=== PATIENT | male | born 1975 | race American Indian/Alaskan Native ===

== ENCOUNTER 2018-02-11 00:14 | Emergency (ER) | payer SELFPAY ==
--- NOTE | 2018-02-11 09:40 | Emergency Department Report ---
ED General Adult HPI - General Chief complaint: Dental/Oral Stated complaint: TOOTH ACHE Time Seen by Provider: 02/11/18 09:35 Source: patient Mode of arrival: Ambulatory Limitations: No Limitations - History of Present Illness Initial comments: Patient is a 42-year-old male who presents with right upper tooth pain that has been going on for the last couple months. He states that his tooth pain is a 3 out of 10. Vomiting makes the pain worse or makes it better. He states that he has not been able go see a dentist however that he needs some antibiotics for his tooth. Patient states that he has no medical problems and he plans to go to the dentist next week. - Related Data Previous Rx's Medication Instructions Recorded Last Taken Type Chlorhexidine Mouthwash [Peridex] 15 ml MM BID #1 bottle 02/11/18 Unknown Rx Penicillin V Potassium 500 mg PO Q6H #30 tablet 02/11/18 Unknown Rx Allergies Allergy/AdvReac Type Severity Reaction Status Date / Time No Known Allergies Allergy Unverified 02/11/18 01:00 ED Review of Systems ROS: Stated complaint: TOOTH ACHE Other details as noted in HPI Constitutional: denies: chills, fever Eyes: denies: eye pain, eye discharge, vision change ENT: other (tooth pain ). denies: ear pain, throat pain Respiratory: denies: cough, shortness of breath, wheezing Cardiovascular: denies: chest pain, palpitations Endocrine: no symptoms reported Gastrointestinal: denies: abdominal pain, nausea, diarrhea Genitourinary: denies: urgency, dysuria Musculoskeletal: denies: back pain, joint swelling, arthralgia Skin: denies: rash, lesions Neurological: denies: headache, weakness, paresthesias Psychiatric: denies: anxiety, depression Hematological/Lymphatic: denies: easy bleeding, easy bruising ED Past Medical Hx - Past Medical History Previous Medical History?: No - Surgical History Past Surgical History?: No - Social History Smoking Status: Current Every Day Smoker Substance Use Type: None - Medications Home Medications: Home Medications Medication Instructions Recorded Confirmed Last Taken Type Chlorhexidine Mouthwash [Peridex] 15 ml MM BID #1 bottle 02/11/18 Unknown Rx Penicillin V Potassium 500 mg PO Q6H #30 tablet 02/11/18 Unknown Rx ED Physical Exam - General Limitations: No Limitations General appearance: alert, in no apparent distress - Head Head exam: Present: atraumatic, normocephalic - Eye Eye exam: Present: normal appearance - ENT ENT exam: Present: mucous membranes moist, other (poor dentition ) - Neck Neck exam: Present: normal inspection - Respiratory Respiratory exam: Present: normal lung sounds bilaterally. Absent: respiratory distress - Cardiovascular Cardiovascular Exam: Present: regular rate, normal rhythm. Absent: systolic murmur, diastolic murmur, rubs, gallop - GI/Abdominal GI/Abdominal exam: Present: soft, normal bowel sounds - Rectal Rectal exam: Present: deferred - Extremities Exam Extremities exam: Present: normal inspection - Back Exam Back exam: Present: normal inspection - Neurological Exam Neurological exam: Present: alert, oriented X3 - Psychiatric Psychiatric exam: Present: normal affect, normal mood - Skin Skin exam: Present: warm, dry, intact, normal color. Absent: rash ED Course Vital Signs 02/11/18 02/11/18 00:42 09:02 Temperature 98.0 F 97.7 F Pulse Rate 78 61 Respiratory 14 16 Rate Blood Pressure 115/69 Blood Pressure 142/99 [Right] O2 Sat by Pulse 98 98 Oximetry ED Medical Decision Making - Medical Decision Making Cdx: Dental cavities ddx: Pulpitis, Periapical absess I will send patient home with oral antibiotics and oral mouthwash. Additional verbal discharge instructions were given. Patient agrees with plan. Critical care attestation.: If time is entered above; I have spent that time in minutes in the direct care of this critically ill patient, excluding procedure time. ED Disposition Clinical Impression: Infected dental carries, Tooth pain Disposition: [id number] TO HOME OR SELFCARE Is pt being admited?: No Does the pt Need Aspirin: No Condition: Stable Additional Instructions: 7. [facility] Location [facility] Location [place] miles away from [address] [address] [facility]: [place] miles from [place] [facility]. Bring Proof of income and current id and proof of independents. Our professional staff provides a variety of dental services including cleanings, fluoride treatments, filings, extractions, as well as, referrals for dentures and partials to patients from early child website See Clinic Full Details Prescriptions: Chlorhexidine Mouthwash [Peridex] 15 ml MM BID #1 bottle Penicillin V Potassium 500 mg PO Q6H #30 tablet Referrals: CALVIN DE LEÓN MD [Staff Physician] - 3-5 Days
[2018-02-11 12:58] VITALS: BP 118/76
== END 2018-02-11 12:56 | disposition home or self-care (01) ==
LOC: ED 00:14
DX: K02.9 Dental caries, unspecified (principal); F17.200 Nicotine dependence, unspecified, uncomplicated
CPT/HCPCS: 99282